=== PATIENT | male | born 1975 | race Caucasian/White ===

== ENCOUNTER 2021-11-05 20:57 | Emergency (ER) | payer MEDICAID ==
[~2021-11-05] VITALS: Ht 162.6 cm; Wt 79.4 kg
[2021-11-05 21:02] VITALS: BP_SYST 142
--- NOTE | 2021-11-05 21:05 | NUR ---
Patient to ER bed 01 to gown for evaluation. Side rails up.
--- NOTE | 2021-11-05 21:07 | NUR ---
Pt brought by self, A&Ox4, pt presents to ER with numbness /facial drop on R side of face since saturday, pt states it is difficult to close R eye, pt is ambulatory, intact ROM, skin pink and warm, cap refill <3.
--- NOTE | 2021-11-05 21:08 | NUR ---
ER at bedside examining patient.
[2021-11-05] MEDS ORDERED: predniSONE 20 MG TABLET PO ONE (21:15)
[2021-11-05 21:49] LABS: CREATININE 0.98 mg/dL (0.55-1.30); POTASSIUM 3.7 mmol/L (3.5-5.1)
[2021-11-05 21:50] LABS: BASOPHILS # (AUTO) 0.1 K/uL (0.0-0.2); BASOPHILS % (AUTO) 0.7 % (0.0-2.0); EOSINOPHILS # (AUTO) 0.2 K/uL (0.0-0.4); EOSINOPHILS % (AUTO) 1.7 % (0.0-4.0); HEMATOCRIT 37.4 % (36-54); LYMPHOCYTES # (AUTO) 3.2 K/uL (1.0-5.5); LYMPHOCYTES % (AUTO) 35.4 % (20.5-51.5); MEAN CORPUSCULAR HEMOGLOBIN 34 pg (27-31); MEAN CORPUSCULAR HGB CONC 35 % (32-36); MEAN CORPUSCULAR VOLUME 98 fL (79.0-98.0); MONOCYTES # (AUTO) 0.5 K/uL (0.0-1.0); MONOCYTES % (AUTO) 5.5 % (1.7-9.3); NEUTROPHILS # (AUTO) 5.1 K/uL (1.8-7.7); NEUTROPHILS % (AUTO) 56.7 % (40.0-70.0); PLATELET COUNT (AUTO) 296 K/uL (130-430); RED BLOOD CELL COUNT(AUTO) 3.81 MIL/uL (4.2-6.2); RED CELL DISTRIBUTION WIDTH 13.5 % (9.0-15.0)
[2021-11-05 21:55] LABS: TOTAL BILIRUBIN 0.2 mg/dL (0.0-1.0)
[2021-11-05 22:39] VITALS: BP_SYST 142
--- NOTE | 2021-11-05 22:40 | NUR ---
Patient given written and verbal discharge instructions and verbalizes understanding. ER MD discussed with patient the results and treatment provided. Patient in stable condition. ID arm band removed. Rx of Prednisone 60 mg given. Patient educated on pain management and to follow up with PMD. Pain Scale 0/10 . Opportunity for questions provided and answered. Medication side effect fact sheet provided.
== END 2021-11-05 22:39 | disposition home or self-care (01) ==
LOC: SED 20:57
DX: G51.0 Bell's palsy (principal); D50.0 Iron deficiency anemia secondary to blood loss (chronic); R03.0 Elevated blood-pressure reading, without diagnosis of hypertension
CPT/HCPCS: 36415; 80053; 85025; 99283; J7512